=== PATIENT | male | born 1960 ===

== ENCOUNTER 2016-11-25 18:43 | Emergency (ER) | payer SELFPAY ==
--- NOTE | 2016-11-25 20:00 | ED ---
Skin/Abscess/FB HPI - General Chief complaint: Needlestick/Exposure Stated complaint: [facility] Needlestick Time Seen by Provider: 11/25/16 18:47 Source: patient Mode of arrival: ambulatory Limitations: no limitations - History of Present Illness Initial comments: 56-year-old male patient presents for evaluation after sustaining a needlestick injury. 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 Patient states that he did immediately wash the wound with soap, water, and iodine solution. He denies any numbness or tingling to the finger. Source is here for blood draw. He denies any other physical concerns or symptoms. He is up-to-date on his tetanus vaccine. - Related Data Allergies Allergy/AdvReac Type Severity Reaction Status Date / Time No Known Allergies Allergy Verified 11/25/16 19:39 Review of Systems ROS Statement: Those systems with pertinent positive or pertinent negative responses have been documented in the HPI. ROS Other: All systems not noted in ROS Statement are negative. Past Medical History Past Medical History: No Reported History History of Any Multi-Drug Resistant Organisms: None Reported Past Surgical History: No Surgical Hx Reported Past Psychological History: No Psychological Hx Reported Smoking Status: Never smoker Past Alcohol Use History: None Reported Past Drug Use History: None Reported General Exam Limitations: no limitations General appearance: alert, in no apparent distress, other (Well-developed, well- nourished adult male patient in no acute distress.) Respiratory exam: Present: normal lung sounds bilaterally. Absent: respiratory distress, wheezes, rales, rhonchi, stridor Cardiovascular Exam: Present: regular rate, normal rhythm, normal heart sounds. Absent: systolic murmur, diastolic murmur, rubs, gallop, clicks Extremities exam: Present: normal inspection, full ROM, normal capillary refill , other (Index finger left hand: Skin is pink, warm, and dry. Cap refill less than 3 seconds.). Absent: tenderness, pedal edema, joint swelling, calf tenderness Neurological exam: Present: alert, oriented X3, CN II-XII intact Psychiatric exam: Present: normal affect, normal mood Skin exam: Present: warm, dry, intact, normal color. Absent: rash Medical Decision Making - Medical Decision Making 56-year-old male patient presented for evaluation after having a needlestick exposure while working. Physical exam was unremarkable. The patient's labs were drawn, source labs were drawn. Patient is up-to-date on his immunizations. He'll be discharged home to follow-up with his primary care physician or industrial health services for any new, worsening, or concerning symptoms. He verbalizes understanding and agrees this plan. Disposition Clinical Impression: Needlestick injury of finger Disposition: HOME SELF-CARE Condition: Good Instructions: Needle Stick Injuries (ED) Additional Instructions: Keep area clean and dry. Monitor for signs or symptoms of infection including but not limited to redness, swelling, drainage, fever, or chills. Follow up with your primary care physician or industrial health services for any further needs. Return here immediately for any new, worsening, or concerning symptoms. Referrals: Nonstaff,Physician [Primary Care Provider] - 1-2 days Time of Disposition: 20:00
[2016-11-25 20:38] VITALS: BP 147/65; PULSE 77; RESP 16; TEMP 97.8
== END 2016-11-25 19:50 | disposition home or self-care (01) ==
LOC: EC 18:43
DX: S60.941A Unspecified superficial injury of left index finger, initial encounter (principal); W46.0XXA Contact with hypodermic needle, initial encounter; Y99.0 Civilian activity done for income or pay; Y92.239 Unspecified place in hospital as the place of occurrence of the external cause
CPT/HCPCS: 36415; 86706; 86803; 87390; 99282

== ENCOUNTER → 2016-12-19 | Outpatient (CLI) | payer OTHER ==
[2016-12-20 14:15] LABS: Hepatits C Virus RNA, Quant <12 IU/mL (<12); LOG HCV IU/mL <1.08 (<1.08)
== END | disposition home or self-care (01) ==
LOC: LABMAIN 14:28
PROVIDERS: ATTEND Emergency Medicine
DX: Z77.21 Contact with and (suspected) exposure to potentially hazardous body fluids (principal)
CPT/HCPCS: 36415; 87522

== ENCOUNTER 2017-08-14 22:07 | Emergency (ER) | payer OTHER ==
[2017-08-14 22:13] VITALS: RESP 18
--- NOTE | 2017-08-14 22:46 | ED ---
General Adult HPI - General Source: patient, RN notes reviewed Mode of arrival: ambulatory Limitations: no limitations <Rory Pruett - Last Filed: 08/14/17 22:44> <David Dutta - Last Filed: 08/15/17 00:11> - General Chief complaint: Needlestick/Exposure Stated complaint: Needlestick Time Seen by Provider: 08/14/17 22:12 - History of Present Illness Initial comments: Patient 57-year-old male presenting to the emergency room today with chief complaint of a needlestick. 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 Patient states to clean the area. He denies any other complaints or symptoms. Patient denies any recent fever, chills, shortness of breath, chest pain, back pain, abdominal pain, nausea or vomiting, numbness or tingling, or any other complaints. (Rory Pruett) - Related Data Home Medications Medication Instructions Recorded Confirmed No Known Home Medications 11/25/16 08/14/17 Allergies Allergy/AdvReac Type Severity Reaction Status Date / Time No Known Allergies Allergy Verified 08/14/17 22:14 Review of Systems ROS Other: All systems not noted in ROS Statement are negative. <Rory Pruett - Last Filed: 08/14/17 22:44> ROS Other: All systems not noted in ROS Statement are negative. <David Dutta - Last Filed: 08/15/17 00:11> ROS Statement: Those systems with pertinent positive or pertinent negative responses have been documented in the HPI. Past Medical History Past Medical History: No Reported History History of Any Multi-Drug Resistant Organisms: None Reported Past Surgical History: No Surgical Hx Reported Past Psychological History: No Psychological Hx Reported Smoking Status: Never smoker Past Alcohol Use History: None Reported Past Drug Use History: None Reported <Rory Pruett - Last Filed: 08/14/17 22:44> General Exam Limitations: no limitations <Rory Pruett - Last Filed: 08/14/17 22:44> <David Dutta - Last Filed: 08/15/17 00:11> - General Exam Comments Initial Comments: General: The patient is awake and alert, in no distress, and does not appear acutely ill. Neck: The neck is supple, there is no tenderness or JVD. Musculoskeletal: Full range motion. Sensation intact. Strength 5/5. Neurological: A&O x 3. CN II-XII intact, There are no obvious motor or sensory deficits. Coordination appears grossly intact. Speech is normal. Skin: Skin is warm and dry and no rashes or lesions are noted. Psychiatric: Normal mood and affect. (Rory Pruett) Vital Signs 08/14/17 22:10 Temperature 97.9 F Pulse Rate 78 Respiratory 18 Rate Blood Pressure 140/72 O2 Sat by Pulse 98 Oximetry Medical Decision Making <Rory Pruett - Last Filed: 08/14/17 22:44> <David Dutta - Last Filed: 08/15/17 00:11> - Medical Decision Making Rapid HIV is negative, hepatitis is pending. Patient informed of results. ( David Dutta) Disposition <Rory Pruett - Last Filed: 08/14/17 22:44> Is patient prescribed a controlled substance at d/c from ED?: No Time of Disposition: 00:11 <David Dutta - Last Filed: 08/15/17 00:11> Clinical Impression: Needle stick injury Disposition: HOME SELF-CARE Condition: Good Instructions: Needle Stick Injuries (ED) Referrals: None,Stated [Primary Care Provider] - 1-2 days
[2017-08-15 00:54] VITALS: BP 120/67; PULSE 70; TEMP 98.4
== END 2017-08-15 00:54 | disposition home or self-care (01) ==
LOC: EC 22:07
DX: S69.92XA Unspecified injury of left wrist, hand and finger(s), initial encounter (principal); W46.0XXA Contact with hypodermic needle, initial encounter; Y99.0 Civilian activity done for income or pay
CPT/HCPCS: 99283

== ENCOUNTER → 2021-03-12 | Outpatient (CLI) | payer BC | END | disposition home or self-care (01) | LOC: LABWHC1 11:11 | PROVIDERS: ATTEND Emergency Medicine | DX: R05.9 Cough, unspecified (principal); Z20.822 Contact with and (suspected) exposure to COVID-19 | CPT/HCPCS: 87635 ==